=== PATIENT | female | born 1950 | race Caucasian/White ===

== ENCOUNTER → 2017-03-27 | Outpatient (CLI) | payer OTHER, MEDICARE | LOC: CIMAGING 11:11 | PROVIDERS: ATTEND Nurse Practitioner | DX: M54.16 Radiculopathy, lumbar region (principal); M51.36 Other intervertebral disc degeneration, lumbar region | CPT/HCPCS: 72100-PO ==

== ENCOUNTER 2017-04-14 14:15 | Outpatient (CLI) | payer OTHER, MEDICARE ==
[2017-04-14] MEDS ORDERED: PROPOFOL/EMULSION 500 MG/50 ML BOTTLE IV ONE (15:30)
[2017-04-14] MEDS ORDERED: PROPOFOL 200 MG/20 ML VIAL ONE (15:30)
[2017-04-14] MEDS ORDERED: fentaNYL 100 MCG/2 ML INJ ONE (15:43)
[2017-04-14] MEDS ORDERED: MIDAZOLAM 2 MG/2 ML VIAL ONE (15:44)
[2017-04-14 18:27] VITALS: BP 124/70; O2SAT 90
[2017-04-14 18:30] VITALS: RESP 16
[2017-04-14 18:34] VITALS: TEMP 97.9
[2017-04-14] MEDS ORDERED: LIDOCAINE 2% 2 ML INJ ONE (19:06)
[2017-04-14] MEDS ORDERED: DEXAMETHASONE 10 MG/ML VIAL ONE (19:06)
[2017-04-14] MEDS ORDERED: METOCLOPRAMIDE 10 MG/2 ML VIAL ONE (19:06)
== END 2017-04-14 17:50 | disposition home or self-care (01) ==
LOC: FIMAGING 14:15
PROVIDERS: ATTEND Nurse Practitioner
DX: M51.36 Other intervertebral disc degeneration, lumbar region (principal); M48.061 Spinal stenosis, lumbar region without neurogenic claudication; K21.9 Gastro-esophageal reflux disease without esophagitis
CPT/HCPCS: 72148; J1100; J2250; J2704; J2765; J3010

== ENCOUNTER → 2017-06-12 | Outpatient (CLI) | payer OTHER, MEDICARE | LOC: CIMAGING 09:23 | PROVIDERS: ATTEND Family Medicine | DX: Z12.31 Encounter for screening mammogram for malignant neoplasm of breast (principal); Z80.3 Family history of malignant neoplasm of breast | CPT/HCPCS: G0202 ==

== ENCOUNTER 2017-11-24 16:10 | Emergency (ER) | payer OTHER, MEDICARE ==
[2017-11-24 16:31] VITALS: BP 136/88
[2017-11-24] MEDS ORDERED: predniSONE 20 MG TAB PO ONE (16:43)
--- NOTE | 2017-11-24 18:11 | EDPHY ---
H & P Time Seen by Provider: 11/24/17 16:28 HPI/ROS: This patient complains of a severely pruritic rash to her right more than left thigh after 2 insect bites to her right ankle a few days ago. She had a similar allergic dermatitis a few years ago treated successfully with oral steroids and some type of topical ointment. She also reports having a different rash she is calling a "heat rash" under her breasts for the past few days with mild irritation to that area as well. She denies any other associated symptoms. ROS: Constitutional: No fevers or chills. No fatigue. HEENT: No facial swelling or lip swelling. Pulmonary: No wheezing or shortness of breath Cardiovascular: No lightheadedness GI: No nausea vomiting Integumentary: No draining lesions. No painful lesions. 7 point ROS is otherwise negative. Past Medical/Surgical History: Hypertension Hypothyroidism Otherwise healthy with immunizations up-to-date. Smoking Status: Former smoker Physical Exam: Physical Exam Vital signs are normal. General: No acute distress HEENT: No facial angioedema. Mouth: No intraoral lesions or tongue swelling. No pharyngeal erythema. Eyes: Pupils equal and react to light. Extraocular motions are intact. No conjunctival injection or scleral icterus Lungs: No respiratory distress. Cardiac: Brisk capillary refill is intact throughout. Skin: Under the patient's breasts bilaterally she has confluent erythema surrounded by satellite lesions consistent with tinea. On her right ankle she has 2 small puncture wounds with no significant surrounding erythema fluctuance or warmth to touch consistent with subacute insect bites. On bilateral thighs she has confluent erythema surrounded by small erythematous papules that david easily with pressure consistent with urticaria or allergic dermatitis. No petechia or purpura. Neuro: Alert and oriented x3 with no sensorimotor deficits. Initial differential diagnosis: Rash under breasts: Tinea corporis, contact dermatitis, insect bites ankle, allergic dermatitis to thighs, doubt tinea to thighs. Doubt cellulitis. Constitutional: Initial Vital Signs Temperature (C) 36.5 C 11/24/17 16:26 Heart Rate 80 11/24/17 16:26 Respiratory Rate 16 11/24/17 16:26 Blood Pressure 136/88 H 11/24/17 16:26 O2 Sat (%) 94 11/24/17 16:26 O2 Delivery Mode Room Air Allergies/Adverse Reactions: Penicillins Allergy (Verified 11/24/17 16:24) Rash Home Medications: Medication Instructions Recorded Cetirizine [ZyrTEC 10 mg (RX)] 10 mg PO DAILY 03/17/13 Cholecalciferol Vit D3 [Vitamin D3 2,000 units PO DAILY 03/17/13 1000 units (OTC)] Fish Oil/Dha/Epa [Fish Oil 1,200 1 each PO DAILY 03/17/13 mg Fish Oil] Herbals/Supplements -Info Only 1 each PO AD 03/17/13 Levothyroxine [Synthroid 88 mcg 75 mcg PO DAILY 03/17/13 (RX)] Multivitamins [Tab-A-Nick] 1 each PO DAILY 03/17/13 Losartan Potassium 50 mg PO DAILY 04/09/17 Lutein 20 mg PO DAILY 04/09/17 hydrOXYzine HCL [Hydroxyzine HCl] 50 - 100 mg PO QID PRN #80 tablet 11/24/17 predniSONE 60 mg PO DAILY #18 tab 11/24/17 MDM/Departure - [facility] ED Course/Re-evaluation: Patient's findings are most consistent with allergic dermatitis exception of the rash to the breast that appears consistent with tinea corporis. I counseled regarding this. Patient is given a 1st dose of prednisone Will also treat her with hydroxyzine for itching. Out recommended Lotrimin Ultra [id number] for her tinea rash. She will follow up with primary care physician for any ongoing symptoms understands need to return for any worsening despite the treatment plan. - Depart Disposition: Home, Routine, Self-Care Clinical Impression: Allergic dermatitis, Insect bite, Tinea corporis Condition: Good Instructions: Dermatitis (ED), Insect Bite or Sting (ED) Additional Instructions: Diagnoses: 1. Allergic dermatitis 2. Insect bite 3. Tinea corporis under breast Plan: Prednisone daily after breakfast for the next week as prescribed Hydroxyzine antihistamine for itching as needed in addition. Lotrimin Ultra [id number] ointment under the breasts. Also after bathing or showering be sure you dry the area under the breast well. Follow up primary care physician for any ongoing symptoms Return for any significant worsening Prescriptions: predniSONE 60 mg PO DAILY #18 tab Referrals: Vanessa Tovar MD [Primary Care Provider] - As per Instructions
== END 2017-11-24 17:00 | disposition home or self-care (01) ==
LOC: CED 16:10
DX: L23.9 Allergic contact dermatitis, unspecified cause (principal); B35.4 Tinea corporis; S90.561A Insect bite (nonvenomous), right ankle, initial encounter; I10 Essential (primary) hypertension; Z87.891 Personal history of nicotine dependence; W57.XXXA Bitten or stung by nonvenomous insect and other nonvenomous arthropods, initial encounter
CPT/HCPCS: 99283; J7512

== ENCOUNTER → 2018-05-27 | Outpatient (CLI) | payer OTHER, MEDICARE | LOC: CIMAGING 10:21 | PROVIDERS: ATTEND Family Medicine | DX: Z12.31 Encounter for screening mammogram for malignant neoplasm of breast (principal); Z80.3 Family history of malignant neoplasm of breast ==